=== PATIENT | male | born 1960 | race Caucasian/White ===

== ENCOUNTER 2021-06-11 12:43 | Inpatient (IN) | payer BC, OTHER ==
[~2021-06-11] VITALS: Ht 180.3 cm; Wt 118.1 kg
[2021-06-11 14:50] LABS: Basophils # (auto) 0.1 10 ^3/uL (0-0.2); Basophils % (auto) 0.7 % (0.0-2.0); Eosinophils # (auto) 0.2 10 ^3/uL (0-0.8); Eosinophils % (auto) 2.4 % (0.0-7.0); Hematocrit 41.9 % (41.0-53.0); Hemoglobin 14.4 g/dL (13.5-17.5); Lymphocytes # (auto) 2.3 10 ^3/uL (0.4-5.4); Mean Corpuscular Hemoglobin 30.1 pg (28.0-32.0); Mean Corpuscular Hgb Conc. 34.3 g/dL (32.0-36.0); Mean Corpuscular Volume 87.8 fL (80.0-100.0); Monocytes # (auto) 0.7 10 ^3/uL (0-1.3); Monocytes % (auto) 7.7 % (0.0-12.0); Neutrophils % (auto) 64.2 % (37.0-80.0); Nucleated Red Blood Cells % 0.1 %; Red Blood Cells 4.78 10^6/uL (4.5-5.90); Red Cell Distribution Width 13.3 % (11.8-14.3); White Blood Cell 9.3 10^3/uL (4.4-10.8)
[2021-06-11 15:08] LABS: Potassium 3.5 mmol/L (3.5-5.1)
[2021-06-11 15:39] LABS: Albumin 3.4 g/dL (3.4-5.0); BUN/Creatinine Ratio 17.1; Bilirubin, Total 0.6 mg/dL (0.2-1.0); Calcium 8.9 mg/dL (8.5-10.1); Total Protein 7.4 g/dL (6.4-8.2)
[2021-06-11] MEDS ORDERED: IOHEXOL 300 MG/ML 100ML BOTTLE IJ ONE (16:25)
[2021-06-11] MEDS ORDERED: CLINDAMYCIN 600MG IV 50 ML IV ONE (19:15)
[2021-06-11] MEDS ORDERED: hydrALAZINE HCL 20 MG/ML VL IV ONE (19:15)
[2021-06-11] MEDS ORDERED: ONDANSETRON HCL 4 MG/2 ML VIAL IV PRN (19:30)
[2021-06-11] MEDS ORDERED: SODIUM CHLORIDE 0.9% 1,000 ML IV ONE ×2 (19:30)
[2021-06-11] MEDS ORDERED: DEXTROSE (50%) 50ML SYRG IV PRN (19:30)
[2021-06-11] MEDS ORDERED: cloNIDine HCL 0.1 MG TAB PO ONE (19:30)
[2021-06-11 19:50] LABS: Cholesterol 230 mg/dL (< 200)
[2021-06-11 19:53] LABS: HDL Cholesterol 34 mg/dL (40-59); LDL Cholesterol 142 mg/dL (< 100); Triglycerides 363 mg/dL (< 150)
[2021-06-11] MEDS ORDERED: POTASSIUM CHL 20 Meq TABLET PO ONE (20:00)
[2021-06-11] MEDS ORDERED: FUROSEMIDE 40 MG/4 ML VIAL IV ONE (20:00)
[2021-06-11 20:57] LABS: Cholesterol 206 mg/dL (< 200)
[2021-06-11 20:59] LABS: HDL Cholesterol 35 mg/dL (40-59); LDL Cholesterol 126 mg/dL (< 100); Triglycerides 323 mg/dL (< 150)
[2021-06-11] MEDS: hydrALAZINE HCL 20 MG/ML VL IV PRN (21:23)
[2021-06-11 22:00] VITALS: BP 155/75
[2021-06-11] MEDS: ACCU-CHEK COMFORT CURVE STRIP VI SCH (22:00)
[2021-06-11] MEDS: InsuLIN REG 1unit/0.01ml Soln (100units/ml) SC SCH (22:00)
[2021-06-11] MEDS: ceFAZolin 1GM/50ML 50 ML IV SCH (23:59)
[2021-06-12 05:00] VITALS: BP 135/82
[2021-06-12] MEDS: ceFAZolin 1GM/50ML 50 ML IV SCH (06:22)
[2021-06-12 06:32] LABS: Basophils # (auto) 0.1 10 ^3/uL (0-0.2); Basophils % (auto) 0.6 % (0.0-2.0); Eosinophils # (auto) 0.2 10 ^3/uL (0-0.8); Eosinophils % (auto) 2.7 % (0.0-7.0); Hemoglobin 14.3 g/dL (13.5-17.5); Lymphocytes # (auto) 1.8 10 ^3/uL (0.4-5.4); Lymphocytes % (auto) 23.5 % (10.0-50.0); Mean Corpuscular Hemoglobin 31.3 pg (28.0-32.0); Mean Corpuscular Hgb Conc. 35.7 g/dL (32.0-36.0); Mean Corpuscular Volume 87.7 fL (80.0-100.0); Monocytes # (auto) 0.8 10 ^3/uL (0-1.3); Monocytes % (auto) 9.6 % (0.0-12.0); Neutrophils % (auto) 63.6 % (37.0-80.0); Nucleated Red Blood Cells % 0.7 %; Red Blood Cells 4.56 10^6/uL (4.5-5.90); Red Cell Distribution Width 13.4 % (11.8-14.3); White Blood Cell 7.8 10^3/uL (4.4-10.8)
[2021-06-12 06:41] LABS: Potassium 3.3 mmol/L (3.5-5.1)
[2021-06-12 06:49] LABS: BUN/Creatinine Ratio 15.5; Bilirubin, Total 0.8 mg/dL (0.2-1.0); Calcium 8.5 mg/dL (8.5-10.1); Total Protein 6.7 g/dL (6.4-8.2)
[2021-06-12] MEDS: InsuLIN REG 1unit/0.01ml Soln (100units/ml) SC SCH ×4 (06:50→22:12)
[2021-06-12] MEDS: ACCU-CHEK COMFORT CURVE STRIP VI SCH ×4 (07:08→22:13)
[2021-06-12 09:00] VITALS: BP 151/85
[2021-06-12] MEDS: ENOXAPARIN SOD 40 MG/0.4 ML SYRINGE SC SCH (09:46)
[2021-06-12] MEDS: hydrALAZINE HCL 20 MG/ML VL IV PRN (12:07)
[2021-06-12] MEDS ORDERED: NIFEdipine ER 30 MG TAB PO ONE (12:15)
[2021-06-12] MEDS ORDERED: POTASSIUM CHL 20 Meq TABLET PO ONE (12:15)
[2021-06-12] MEDS ORDERED: hydrALAZINE HCL 25 MG TAB PO ONE (12:15)
[2021-06-12] MEDS: AMPICILLIN & SULBACTAM SODIUM 3 GM in SODIUM CHL 0.9% 100 ML IV SCH ×2 (12:30→18:48)
[2021-06-12 17:00] VITALS: BP 182/102
[2021-06-12 22:03] VITALS: BP 161/85
[2021-06-12] MEDS: hydrALAZINE HCL 25 MG TAB PO SCH (22:08)
[2021-06-12] MEDS: INSULIN LANTUS (GLARGINE) 1 /0.01ml (100units/ml) SC SCH (22:13)
[2021-06-12] MEDS ORDERED: ACETAMINOPHEN 325 MG TAB PO PRN (23:00)
[2021-06-12 23:30] VITALS: BP 131/80
[2021-06-13] VITALS (7 sets, daily range): BP systolic 122–179; BP diastolic 58–103
[2021-06-13] MEDS: AMPICILLIN & SULBACTAM SODIUM 3 GM in SODIUM CHL 0.9% 100 ML IV SCH ×4 (00:43→21:39)
[2021-06-13] MEDS: INSULIN LANTUS (GLARGINE) 1 /0.01ml (100units/ml) SC SCH ×2 (06:51→21:44)
[2021-06-13] MEDS: ACCU-CHEK COMFORT CURVE STRIP VI SCH ×4 (06:51→21:39)
[2021-06-13] MEDS: InsuLIN REG 1unit/0.01ml Soln (100units/ml) SC SCH ×4 (06:51→21:41)
[2021-06-13 09:41] LABS: Urine Bacteria NONE SEEN /hpf (None Seen); Urine Blood Negative /uL (Negative); Urine Specific Gravity 1.031 (1.001-1.035); Urine WBC 1 /hpf (0 - 3)
[2021-06-13] MEDS: hydrALAZINE HCL 25 MG TAB PO SCH ×2 (09:54→21:39)
[2021-06-13] MEDS: hydrALAZINE HCL 20 MG/ML VL IV PRN ×2 (09:54→16:17)
[2021-06-13] MEDS: ENOXAPARIN SOD 40 MG/0.4 ML SYRINGE SC SCH (10:00)
[2021-06-13 10:05] LABS: INR 1.08 (0.9-1.15); Partial Thromboplastin Time 30.2 sec (23.6-33.0)
[2021-06-13] MEDS ORDERED: GADOTERATE MEG 10 MMOL/20ml INJ (0.5MMOL/ml) IV ONE (10:38)
[2021-06-13] MEDS ORDERED: ANGIOMAX 250 MG VIAL IV ONE (12:18)
[2021-06-13] MEDS ORDERED: fentaNYL CITRATE 100 MCG/2 ML VL ONE (12:18)
[2021-06-13] MEDS ORDERED: LIDOCAINE 2%HCL (LOCAL ANESTH.) INJ 20ML MDV ONE (12:19)
[2021-06-13] MEDS ORDERED: MIDAZOLAM HCL 2MG/2ML 2ml VIAL (1mg/ml) ONE (12:19)
[2021-06-13] MEDS ORDERED: SODIUM CHL 0.9% 0 ML ONE (12:19)
[2021-06-13] MEDS ORDERED: IODIXANOL 320MG/ML 100ML BTL IV ONE (12:20)
[2021-06-13] MEDS ORDERED: METOPROLOL TARTRATE 1MG/1ML-5ML VIAL IV ONE ×2 (12:21→12:30)
[2021-06-13] MEDS ORDERED: hydrALAZINE HCL 20 MG/ML VL ONE (13:13)
[2021-06-13] MEDS ORDERED: LABETALOL HCL 5 MG/ML ML 20ML VIAL IV ONE (13:35)
[2021-06-13] MEDS: MORPHINE SULFATE INJECTION 2 MG/ML SYRG IV PRN ×2 (14:50→19:32)
[2021-06-13] MEDS: METOPROLOL TARTRATE 1MG/1ML-5ML VIAL IV PRN (18:22)
[2021-06-13] MEDS ORDERED: ATORVASTATIN 20 MG TAB PO SCH (22:00)
[2021-06-14] MEDS: AMPICILLIN & SULBACTAM SODIUM 3 GM in SODIUM CHL 0.9% 100 ML IV SCH ×4 (04:07→16:22)
[2021-06-14 05:51] LABS: Basophils # (auto) 0 10 ^3/uL (0-0.2); Basophils % (auto) 0.5 % (0.0-2.0); Eosinophils # (auto) 0.4 10 ^3/uL (0-0.8); Eosinophils % (auto) 4.7 % (0.0-7.0); Hematocrit 37.9 % (41.0-53.0); Hemoglobin 13.3 g/dL (13.5-17.5); Lymphocytes # (auto) 1.7 10 ^3/uL (0.4-5.4); Lymphocytes % (auto) 21.2 % (10.0-50.0); Mean Corpuscular Hemoglobin 30.9 pg (28.0-32.0); Mean Corpuscular Volume 88.2 fL (80.0-100.0); Monocytes # (auto) 0.7 10 ^3/uL (0-1.3); Monocytes % (auto) 8.6 % (0.0-12.0); Neutrophils # (auto) 5.3 10 ^3/uL (1.6-8.6); Nucleated Red Blood Cells % 0.2 %; Red Cell Distribution Width 13.1 % (11.8-14.3); White Blood Cell 8.1 10^3/uL (4.4-10.8)
[2021-06-14 06:09] LABS: Albumin 2.5 g/dL (3.4-5.0); Calcium 8.4 mg/dL (8.5-10.1); Potassium 3.3 mmol/L (3.5-5.1)
[2021-06-14 06:12] LABS: BUN/Creatinine Ratio 17.6; Magnesium 1.9 mg/dL (1.6-2.6)
[2021-06-14 06:13] VITALS: BP 174/96
[2021-06-14 06:14] LABS: Bilirubin, Total 0.6 mg/dL (0.2-1.0)
[2021-06-14] MEDS: hydrALAZINE HCL 20 MG/ML VL IV PRN (06:16)
[2021-06-14] MEDS: INSULIN LANTUS (GLARGINE) 1 /0.01ml (100units/ml) SC SCH (06:35)
[2021-06-14] MEDS: InsuLIN REG 1unit/0.01ml Soln (100units/ml) SC SCH ×2 (06:35→12:23)
[2021-06-14] MEDS: ACCU-CHEK COMFORT CURVE STRIP VI SCH ×2 (06:37→12:23)
[2021-06-14 09:00] VITALS: BP 150/81
[2021-06-14] MEDS: ENOXAPARIN SOD 40 MG/0.4 ML SYRINGE SC SCH (09:03)
[2021-06-14] MEDS: hydrALAZINE HCL 25 MG TAB PO SCH (09:03)
[2021-06-14] MEDS: METOPROLOL TARTRATE 1MG/1ML-5ML VIAL IV PRN (12:15)
[2021-06-14 13:00] VITALS: BP 187/102
[2021-06-14] MEDS ORDERED: ASPI1TAB20 PO (13:38)
[2021-06-14] MEDS ORDERED: CEPH-509 PO (13:38)
[2021-06-14] MEDS ORDERED: cloNIDine HCL 0.1 MG TAB PO ONE (14:15)
[2021-06-14 15:04] VITALS: BP 184/94
[2021-06-14 15:48] VITALS: BP 133/83
[2021-06-14] MEDS ORDERED: INSULIN LANTUS (GLARGINE) 1 /0.01ml (100units/ml) SC SCH (22:00)
== END 2021-06-14 16:00 | disposition home or self-care (01) | DRG 603 ==
LOC: ER 12:43 → TELE 19:20 → TELE-WESTW 21:55
PROVIDERS: ADMIT Registered Nurse; ATTEND Internal Medicine
PROC: B44LZZZ Ultrasonography of Femoral Artery (ICD-10-PCS; principal; 2021-06-13)
PROC: B41GYZZ Fluoroscopy of Left Lower Extremity Arteries using Other Contrast (ICD-10-PCS; 2021-06-13)
PROC: B41GYZZ Fluoroscopy of Left Lower Extremity Arteries using Other Contrast (ICD-10-PCS; 2021-06-13)
PROC: B410YZZ Fluoroscopy of Abdominal Aorta using Other Contrast (ICD-10-PCS; 2021-06-13)
DX: L03.116 Cellulitis of left lower limb (principal); R65.10 Systemic inflammatory response syndrome (SIRS) of non-infectious origin without acute organ dysfunction; N17.9 Acute kidney failure, unspecified; L97.909 Non-pressure chronic ulcer of unspecified part of unspecified lower leg with unspecified severity; I80.3 Phlebitis and thrombophlebitis of lower extremities, unspecified; I83.90 Asymptomatic varicose veins of unspecified lower extremity; E11.622 Type 2 diabetes mellitus with other skin ulcer; E11.65 Type 2 diabetes mellitus with hyperglycemia; E11.51 Type 2 diabetes mellitus with diabetic peripheral angiopathy without gangrene; G89.29 Other chronic pain; I10 Essential (primary) hypertension; Z20.822 Contact with and (suspected) exposure to COVID-19
CPT/HCPCS: 36415; 71045; 73701; 75630; 76942; 80053; 80061; 81001; 82962; 83036; 83735; 83880; 84484; 85025; 85610; 85730; 86850; 86900; 86901; 87040; 87077; 87186; 87205; 93005; 93925; 93971; 96365; 96375; 99152; 99153; C1769; G0378; J0690; J1815; J2250; J3490; Q9967